=== PATIENT | female | born 1955 | race Two or more races ===

== ENCOUNTER 2018-05-06 10:24 | Emergency (ER) | payer MEDICARE, OTHER ==
[~2018-05-06] VITALS: Ht 160 cm; Wt 98.3 kg
[~2018-05-06 10:24] MED LIST: ASPI-1009 PO; CAR30T PO; DULO-31 PO; ESCI20TA29 PO; METF500T PO; NOR5T PO; NORCO10T PO; OLME20TA15 PO; ONDA4TAB59 PO; SIMV20TA5 PO; UBID50TA3 PO
[2018-05-06 10:35] VITALS: BP 137/90
[2018-05-06] MEDS ORDERED: MECL-111 PO (10:54)
[2018-05-06] MEDS ORDERED: TRAM50TA2 PO (10:54)
== END 2018-05-06 13:11 | disposition home or self-care (01) ==
LOC: ER 10:24
DX: M54.5 Low back pain (principal); R42 Dizziness and giddiness; R11.0 Nausea; E78.00 Pure hypercholesterolemia, unspecified; E11.9 Type 2 diabetes mellitus without complications; Z90.49 Acquired absence of other specified parts of digestive tract; Z79.82 Long term (current) use of aspirin; Z88.2 Allergy status to sulfonamides
CPT/HCPCS: 72100; 99284

== ENCOUNTER 2018-06-20 17:49 | Emergency (ER) | payer MEDICARE ==
[~2018-06-20] VITALS: Ht 160 cm; Wt 96.8 kg
[~2018-06-20 17:49] MED LIST changes: +MECL-111 PO
[2018-06-20] MEDS ORDERED: HYDROcodone/acetaminophen 10/325mg tab PO ONE (20:45)
[2018-06-20] MEDS ORDERED: HYDR-3965 PO (20:46)
[2018-06-20 21:12] VITALS: BP 157/97
== END 2018-06-20 21:19 | disposition home or self-care (01) ==
LOC: ER 17:50
DX: M54.89 Other dorsalgia (principal); E78.00 Pure hypercholesterolemia, unspecified; E11.9 Type 2 diabetes mellitus without complications; M19.90 Unspecified osteoarthritis, unspecified site; Z90.49 Acquired absence of other specified parts of digestive tract; Z88.2 Allergy status to sulfonamides; Z79.82 Long term (current) use of aspirin; Z79.84 Long term (current) use of oral hypoglycemic drugs; Z79.899 Other long term (current) drug therapy; X50.0XXA Overexertion from strenuous movement or load, initial encounter; Y93.89 Activity, other specified; Y92.89 Other specified places as the place of occurrence of the external cause; Y99.8 Other external cause status
CPT/HCPCS: 99284

== ENCOUNTER 2019-06-09 07:03 | Emergency (ER) | payer MEDICARE, MEDICAID ==
[~2019-06-09] VITALS: Ht 160 cm; Wt 95.0 kg
[~2019-06-09 07:03] MED LIST changes: +SIMV-42 PO; -SIMV20TA5 PO
--- NOTE | 2019-06-09 07:24 | NUR ---
PATIENT AMBULATORY TO ER #1 WITH C/O BUG BITE ON RIGHT FA YESTERDAY THAT IS CAUSING INCREASING SWELLING TO RIGHT FOREARM. REDNESS AND SWELLING NOTED TO ENTIRE RIGHT FOREARM. C/O ITCHING. PINPOINT WHITE BLEB NOTED TO MIDDLE OF REDDENED AREA.
[2019-06-09] MEDS ORDERED: clindamycin 150mg capsule PO ONE (07:25)
[2019-06-09] MEDS ORDERED: diphenhydrAMINE 25mg capsule PO ONE (07:25)
[2019-06-09] MEDS ORDERED: TETanus/Pertussis (Acell)/Diphther VAC/PF (Tdap-Adult) 0.5ml syringe IM ONE (07:25)
[2019-06-09] MEDS ORDERED: bacitracin 15gm ointment TP ONE (07:25)
[2019-06-09] MEDS ORDERED: CLIN150C2 PO (07:28)
[2019-06-09 07:46] VITALS: BP 156/106
== END 2019-06-09 07:59 | disposition home or self-care (01) ==
LOC: ER 07:03
DX: L03.113 Cellulitis of right upper limb (principal); E78.00 Pure hypercholesterolemia, unspecified; E11.9 Type 2 diabetes mellitus without complications; M19.90 Unspecified osteoarthritis, unspecified site; M79.7 Fibromyalgia; Z88.2 Allergy status to sulfonamides; Z79.899 Other long term (current) drug therapy; Z79.2 Long term (current) use of antibiotics; Z79.82 Long term (current) use of aspirin; Z90.49 Acquired absence of other specified parts of digestive tract; Z90.89 Acquired absence of other organs; Z86.79 Personal history of other diseases of the circulatory system
CPT/HCPCS: 10060; 90471; 90715; 99284; Q0163

== ENCOUNTER 2020-05-02 12:42 | Emergency (ER) | payer MEDICARE, MEDICAID ==
[~2020-05-02] VITALS: Ht 160 cm; Wt 88.0 kg
[~2020-05-02 12:42] MED LIST changes: -MECL-111 PO; +MECL-159 PO
[2020-05-02 15:23] VITALS: BP 129/96
[2020-05-02] MEDS ORDERED: AMOX-117 PO (15:27)
[2020-05-02] MEDS ORDERED: IBUP-1984 PO (15:27)
== END 2020-05-02 15:35 | disposition home or self-care (01) ==
LOC: ER 12:43
DX: K04.7 Periapical abscess without sinus (principal); E78.00 Pure hypercholesterolemia, unspecified; E11.9 Type 2 diabetes mellitus without complications; M19.90 Unspecified osteoarthritis, unspecified site; Z90.49 Acquired absence of other specified parts of digestive tract; Z98.890 Other specified postprocedural states; Z88.2 Allergy status to sulfonamides; Z79.2 Long term (current) use of antibiotics; Z79.899 Other long term (current) drug therapy
CPT/HCPCS: 99283